=== PATIENT | female | born 1955 | race Caucasian/White ===

== ENCOUNTER 2016-11-06 08:58 | Emergency (ER) | payer MEDICARE, BC ==
[~2016-11-06] VITALS: Ht 165.1 cm; Wt 64.5 kg
[~2016-11-06 08:58] MED LIST: BETH10 PO; CALC500T7 PO; CYCL10 PO; DSS100 PO; ESCI20TA PO; FERG325 PO; GABA-531 PO; HYDR2 PO; LEVO112T4 PO; LISD70CA PO; METH10 PO; MULT-1238 PO; PREM625 PO; PROV5 PO; TAMS0.4C32 PO; VENL-68 PO; VITAD5000 PO
[2016-11-06] MEDS ORDERED: ESTR-3 PO (09:12)
[2016-11-06] MEDS ORDERED: ASPI81 PO (09:12)
[2016-11-06] MEDS ORDERED: ADDE10 PO (09:12)
[2016-11-06] MEDS ORDERED: VENL-67 PO (12:50)
[2016-11-06] MEDS ORDERED: CYCLOBENZAPRINE HCL 10 MG TABLET PO ONE (13:00)
[2016-11-06 14:37] VITALS: BP 125/74
== END 2016-11-06 16:09 | disposition home or self-care (01) ==
LOC: EMS 09:01
DX: S43.401A Unspecified sprain of right shoulder joint, initial encounter (principal); S53.401A Unspecified sprain of right elbow, initial encounter; S50.11XA Contusion of right forearm, initial encounter; S00.93XA Contusion of unspecified part of head, initial encounter; S73.101A Unspecified sprain of right hip, initial encounter; Z86.73 Personal history of transient ischemic attack (TIA), and cerebral infarction without residual deficits; Z88.6 Allergy status to analgesic agent; Z88.1 Allergy status to other antibiotic agents; Z88.5 Allergy status to narcotic agent; Z79.82 Long term (current) use of aspirin; W19.XXXA Unspecified fall, initial encounter; Y93.01 Activity, walking, marching and hiking; Y92.098 Other place in other non-institutional residence as the place of occurrence of the external cause; Y99.8 Other external cause status
CPT/HCPCS: 70450; 73502; 99284